=== PATIENT | female | born 1950 | race Caucasian/White ===

== ENCOUNTER 2019-05-02 14:00 | Inpatient (IN) | payer MEDICARE ==
[2019-05-10] MEDS ORDERED: Vancomycin 1.5 GRAM/300 ML BAG 1.5 GM/300 ML BAG ONE (08:16)
[2019-05-10] MEDS ORDERED: Tranexamic Acid 1,000 MG/10 ML VIAL ONE ×2 (08:16→12:26)
[2019-05-10] MEDS ORDERED: Sodium Chloride 0.9% 100 ML ONE (08:16)
[2019-05-10] MEDS ORDERED: Midazolam HCl 2 mg/2 ml Vial ONE (08:42)
[2019-05-10] MEDS ORDERED: Fentanyl 100 MCG/2 ML VIAL ONE ×2 (08:42→09:30)
[2019-05-10] MEDS ORDERED: Ondansetron PF 4 MG/2 ML Vial IVP PRN (09:18)
[2019-05-10] MEDS ORDERED: Zolpidem Tartrate 5 MG TAB PO PRN (09:18)
[2019-05-10] MEDS ORDERED: Ropivacaine 0.2% 550 ML 550 ML NERVE BLCK SCH (09:18)
[2019-05-10] MEDS ORDERED: Promethazine HCl 25 MG/ML VIAL IM PRN ×2 (09:18→12:10)
[2019-05-10] MEDS ORDERED: HYDROcodone/Acetaminophen 10/325 mg Tablet PO PRN (09:18)
[2019-05-10] MEDS ORDERED: Fentanyl 100 MCG/2 ML VIAL IV PRN (09:19)
[2019-05-10] MEDS ORDERED: Scopolamine 1.5 mg/72 hour Patch ONE (09:20)
[2019-05-10] MEDS ORDERED: PHENYLEPHRINE-NS 100 MCG/ML 10 ML SYRINGE ONE (09:42)
[2019-05-10] MEDS ORDERED: EPHEDRINE 25 MG/5 ML SYRINGE ONE (09:42)
[2019-05-10] MEDS ORDERED: PROPOFOL 200 MG/20 ML VIAL ONE (09:42)
[2019-05-10] MEDS ORDERED: Ondansetron PF 4 MG/2 ML Vial ONE (09:42)
[2019-05-10] MEDS ORDERED: Lidocaine 1% PF 5 ML VIAL ONE (09:42)
[2019-05-10] MEDS ORDERED: Ketorolac Tromethamine 30 MG/ML VIAL ONE (09:42)
[2019-05-10] MEDS ORDERED: Glycopyrrolate 0.2 MG/ML 5 ML SYRINGE ONE (09:42)
[2019-05-10] MEDS ORDERED: Rocuronium Bromide 10 MG/ML (10ML VIAL) ONE (09:42)
[2019-05-10] MEDS ORDERED: Ropivacaine 0.5% HCl/PF (150 MG/30 ML VIAL) ONE (09:42)
[2019-05-10] MEDS ORDERED: Dexamethasone 20 MG/5 ML VIAL ONE (09:42)
[2019-05-10] MEDS ORDERED: Ropivacaine 0.2% HCl/PF (40 MG/20 ML VIAL) ONE (09:42)
[2019-05-10] MEDS ORDERED: Bisacodyl 10 MG SUPP PR PRN (11:57)
[2019-05-10] MEDS ORDERED: Ondansetron HCl/PF 4 MG/2 ML Vial IVP PRN (12:10)
[2019-05-10] MEDS ORDERED: HYDROmorphone 2 MG/ML VIAL SLOW IVP PRN (12:10)
[2019-05-10] MEDS ORDERED: Promethazine HCl 25 MG/ML VIAL SLOW IVP PRN (12:10)
[2019-05-10] MEDS ORDERED: PACU-Morphine 4MG/ML VIAL SLOW IVP PRN (12:10)
[2019-05-10] MEDS: Lactated Ringer's 1,000 ML IV SCH ×2 (13:10→16:27)
[2019-05-10 14:13] VITALS: BMI 38.0
[2019-05-10] MEDS: CEFAZOLIN 2 GM in Premix Bag 1 BAG IVPB SCH ×2 (16:28→23:06)
[2019-05-10] MEDS: Potassium Chloride 20 MEQ TAB PO SCH (16:29)
[2019-05-10] MEDS: Mometasone 200 MCG/Formoterol 5 MCG 120 PUFF INHALER INH SCH (19:37)
[2019-05-10] MEDS: Montelukast Sodium 10 mg Tablet PO SCH (20:47)
[2019-05-10] MEDS: DULoxetine 60 MG CAP PO SCH (20:47)
[2019-05-10] MEDS ORDERED: Vancomycin 1.5 GRAM/300 ML BAG 1.5 GM in Premix Bag 1 BAG IVPB SCH (21:00)
[2019-05-10] MEDS: Verapamil PM 100 MG CAP PO SCH (21:17)
[2019-05-10] MEDS: traMADol HCl 50 MG TAB PO PRN (23:57)
[2019-05-11] MEDS: HYDROcodone/Acetaminophen 10/325 mg Tablet PO PRN ×2 (02:45→08:19)
[2019-05-11] MEDS: tiZANidine HCl 4 MG TAB PO PRN ×2 (05:48→21:05)
[2019-05-11] MEDS: Mometasone 200 MCG/Formoterol 5 MCG 120 PUFF INHALER INH SCH ×2 (08:08→18:52)
[2019-05-11] MEDS: Potassium Chloride 20 MEQ TAB PO SCH ×2 (08:14→17:13)
[2019-05-11] MEDS: Furosemide 40 MG TAB PO SCH (08:14)
[2019-05-11] MEDS: Loratadine 10 MG TAB PO SCH (08:14)
[2019-05-11] MEDS: Losartan 25 MG TAB PO SCH (08:15)
[2019-05-11] MEDS: Stress 600 With Zinc 1 TAB PO SCH (08:15)
--- NOTE | 2019-05-11 11:34 | OP ---
DATE OF PROCEDURE: 05/10/2019 PREOPERATIVE DIAGNOSIS: Degenerative joint disease, left shoulder. POSTOPERATIVE DIAGNOSIS: Degenerative joint disease, left shoulder. PROCEDURE PERFORMED: Left total shoulder arthroplasty with biceps tenodesis. IMPLANTS: Tornier PERFORM Cortiloc S40 glenoid, 4C Flex stem, and a 43 mm head, low offset. OPTICAL GOODS WORKER: Abhijit Grey PA-C BLOOD LOSS: 200. SPECIMENS: None. DRAINS: None. COMPLICATIONS: None. NARRATIVE REPORT: After standard deltopectoral approach, I examined the biceps tendon sheath which was inflamed and had a very thick bursal layer over the top with underlying ganglion. Biceps was opened. The biceps tendon sheath was opened. Biceps was in poor condition. It was taken off the superior glenoid tubercle and tacked and then tenodesed using #5 Ethibond suture to bone below the joint. The subscapularis was taken off using an osteotome to make a small lesser trochanteric osteotomy, tagged with four #5 Ethibond sutures. Head was dislocated. Osteophytes were trimmed. I released the anterior capsule, got the subscapularis to an elastic consistency. I then cut the humeral head at a 135-degree angle and trimmed the osteophytes. The head was then broached and sized appropriately. A trial prosthesis was left in the shaft and I approached the glenoid. Bone spurs were removed from around the glenoid. True center of the glenoid was identified. I made a single drill hole and reamed with an appropriate size reamer, trimmed osteophytes, punched the keel and did a trial reduction with the glenoid which appeared to be an appropriate fit. Trials were removed and irrigation was performed. The glenoid was punched into place and cement was allowed to cure. Extraneous cement was removed. Attention was turned back to the humerus where trial heads were used and the appropriate size was confirmed with the appropriate elasticity of the tissues. Trial was removed. Irrigation was performed. Four #5 Ethibond sutures were placed through the lesser tuberosity. The permanent implant was impacted into place. The subscapularis was repaired in a double-row fashion. The rotator interval was repaired with #1 Ethibond. Irrigation performed again. Deltopectoral interval was tacked closed with 0 Vicryl, subcutaneous closed with 2-0 Vicryl. The skin was closed with abiel. Sterile dressings applied. The patient was placed in a sling. There were no complications. Job ID: [id number]
[2019-05-11] MEDS: Lactated Ringer's 1,000 ML IV SCH (17:06)
[2019-05-11] MEDS: Montelukast Sodium 10 mg Tablet PO SCH (21:05)
[2019-05-11] MEDS: Verapamil PM 100 MG CAP PO SCH (21:05)
[2019-05-11] MEDS: DULoxetine 60 MG CAP PO SCH (21:05)
[2019-05-11] MEDS: traMADol HCl 50 MG TAB PO PRN (23:14)
[2019-05-12] MEDS: traMADol HCl 50 MG TAB PO PRN (07:06)
[2019-05-12] MEDS: Mometasone 200 MCG/Formoterol 5 MCG 120 PUFF INHALER INH SCH ×2 (08:34→19:18)
[2019-05-12] MEDS: Losartan 25 MG TAB PO SCH (10:53)
[2019-05-12] MEDS: Potassium Chloride 20 MEQ TAB PO SCH ×2 (10:54→17:34)
[2019-05-12] MEDS: Loratadine 10 MG TAB PO SCH (10:54)
[2019-05-12] MEDS: Furosemide 40 MG TAB PO SCH (10:54)
[2019-05-12] MEDS: Lactated Ringer's 1,000 ML IV SCH (10:55)
[2019-05-12] MEDS: Stress 600 With Zinc 1 TAB PO SCH (11:07)
--- NOTE | 2019-05-12 14:27 | PRG ---
DATE OF SERVICE: 05/12/2019 SUBJECTIVE: Shannon is a 68-year-old female, postoperative day 2 from a right total shoulder arthroplasty. Yesterday, we held discharge due to the fact that she was comfortable, but had new onset of confusion. We thought this was medication induced, therefore changed her medication and discontinued the Howe. However, overnight, she has been hallucinating. She has been a pleasant, but confused some and she drifts in and out of lucidity. She will carry on a discussion with her daughter who has been at the bedside and quite helpful, but last night the patient wandered down in the tripp into a different room. The patient has no history of dementia. OBJECTIVE: VITAL SIGNS: Temperature 98.8, pulse 84, respiratory rate 18, O2 saturation 92% on room air, and blood pressure 165/72. NEUROLOGIC: She is alert, responsive, and appropriate with examiner. Remote memory is adequate. Short-term memory is deficient. She is grossly nonfocal. No nystagmus. She can stand and follow commands. She has no asymmetry of facial muscles. No weakness in the upper extremities. She is able to mobilize very well. EXTREMITIES: Her incision is clean. There is no strike through. She is neurovascularly intact in the right upper extremity. IMPRESSION: A 68-year-old female, postoperative day 2 with new onset confusion and persistent confusion now for 24 hours. At this point, I do not feel it is drug related, especially with pain medicines. PLAN: We will consult Medicine Service and have them take a look to see if we can figure out why this patient is confused. Job ID: [id number]
[2019-05-12 17:18] LABS: Actual Bicarbonate (HCO3a) 23.6 mEq/L (22-28); Base Excess (BEa) -0.4 mEq/L (-2.0 to +3.0); CO2 Tension 36.4 mmHg (35.0-45.0); Carboxyhemoglobin (COHb) 0.9 gm% (0.0-3.0); Hemoglobin (Hb) 12.2 g/dL (12.0-16.0); O2 Tension (PaO2) 62.7 mmHg (> 70.0); Potassium - ABG Lab 3.65 mmol/L (3.70-5.30); pH, Arterial 7.43 (7.35-7.45)
[2019-05-12 17:19] LABS: Puncture Site RB
[2019-05-12 17:39] LABS: #Basophils 0.1 thou/uL (0.0-0.2); #Eosinphils 0.4 thou/uL (0.0-0.7); #Lymphocytes 2.5 thou/uL (1.20-3.40); #Monocytes 1.6 thou/uL (0.11-0.59); #Neutrophils 8.6 thou/uL (1.40-6.50); %Basophils 0.7 % (0.0-1.0); %Eosinophils 2.8 % (0.0-10.0); %Lymphocytes 18.8 % (21.0-51.0); %Monocytes 12.2 % (0.0-10.0); %Neutrophils 65.5 % (42.0-75.0); Hemoglobin 12.3 g/dL (12.0-16.0); Mean Corpuscular Hemoglobin 32.4 pg (27.0-31.0); Mean Corpuscular Volume 95.3 fL (78.0-98.0); Mean Platelet Volume 8.5 fL (7.4-10.4); Platelet Count 261 thou/uL (130-400); RBC Distribution Width 12.2 % (11.5-14.5); Red Blood Cell (RBC) Count 3.81 mill/uL (4.20-5.40); White Blood Cell (WBC) Count 13.1 thou/uL (4.8-10.8)
[2019-05-12 17:53] LABS: ALT (SGPT) 10 U/L (8-55); AST (SGOT) 19 U/L (5-34); Albumin 3.7 g/dL (3.4-4.8); Alkaline Phosphatase 70 U/L (40-110); Anion Gap 13 mmol/L (10-20); BUN (Urea Nitrogen) 12 mg/dL (9.8-20.1); Bilirubin, Total 0.5 mg/dL (0.2-1.2); Calc. Creatinine Clearance 117 mL/min (70-130); Calcium 9.2 mg/dL (7.8-10.44); Carbon Dioxide 24 mmol/L (23-31); Chloride 104 mmol/L (98-107); Estimated GFR-MDRD 71; Globulin 3.2 g/dL (2.4-3.5); Glucose 99 mg/dL (80-115); Protein, Total 6.9 g/dL (6.0-8.3); Sodium 137 mmol/L (136-145)
--- NOTE | 2019-05-12 18:56 | CON ---
DATE OF CONSULTATION: 05/12/2019 PRIMARY CARE PHYSICIAN: The patient's primary care physician is out of town. REASON FOR CONSULTATION: Altered mental status. HISTORY OF PRESENT ILLNESS: Ms. Weiss is a very pleasant 68-year-old female who has a history of hypertension and what sounds like chronic bronchitis. She was admitted for an elective left shoulder surgery due to chronic pain. She had the procedure done on the , and her daughter who is at the bedside says that ever since she returned from surgery she has been confused. She says that she will wake up, she can recognize the daughter and knows where she is, but talks nonsensical. She says that her words are clear, but they are random. She says that she also has been sleeping a whole lot, and generally while she sleeps, she is confused and will just kind of mumble things. She does admit that the patient had a habit of snoring at home as well and occasionally looked labored with her breathing at home. Currently, when I see her, she does appear to have some labored breathing and she is making some jerking with her legs. She denies having any other symptoms, such as pain. She says she has been occasionally nauseated, but no vomiting and otherwise no other complaints. The patient's daughter says that her mom was alert and completely functional. No signs of any memory loss. Prior to this, she was able to you know dress herself, pay bills online, etc., prior to this happening. REVIEW OF SYSTEMS: All systems were reviewed and are negative except for that mentioned in the history of present illness. PAST MEDICAL HISTORY: Significant for: 1. Hypertension. 2. Bronchitis. 3. COPD. 4. Chronic anemia. 5. Obesity. The patient's BMI is 38, she is 5 feet 8 inches, and 250 pounds. PAST SURGICAL HISTORY: 1. She has had right knee arthroscopy. 2. Lens implant. 3. Cataract surgery. 4. . ALLERGIES: TO LATEX AND ADHESIVE TAPE. FAMILY HISTORY: Significant for Alzheimer disease. SOCIAL HISTORY: She is a nonsmoker and nondrinker. CURRENT MEDICATIONS: Include: 1. Super B complex one capsule daily. 2. Verapamil extended release 300 mg nightly. 3. Tizanidine 4 mg t.i.d. 4. Potassium chloride 20 mEq two tablets twice a day. 5. Losartan 50 mg daily. 6. Singulair 10 mg nightly. 7. Zyrtec 5 mg nightly. 8. Furosemide 40 mg daily. 9. Drisdol 1.25 mg every 7 days. 10. Duloxetine 60 mg nightly. 11. Curcumin 25 mg daily. PHYSICAL EXAMINATION: GENERAL: She is initially drowsy, but then she can be awakened, and when she is, she is alert and oriented to person, place, and time. She knows why she is in the hospital. She can recognize her daughter. VITAL SIGNS: Blood pressure was 127/86, heart rate 94, respiratory rate of 16, and temperature is 98.2. HEENT: Pupils are equal, round, and reactive. Extraocular muscles are intact. Her sclerae anicteric. Throat, there is no erythema and no exudates. NECK: No adenopathy. No bruits. LUNGS: Clear to auscultation. She did have some coarse breath sounds at the bases. Very poor inspiratory effort. CARDIOVASCULAR: She has a normal S1 and S2. No S3 or S4. No murmurs, clicks, or rubs. ABDOMEN: Obese. It is soft, nontender, and nondistended. Positive for bowel sounds. No rebound. No guarding. No organomegaly. EXTREMITIES: There is 1+ edema. NEUROLOGIC: The exam is grossly nonfocal. SKIN AND INTEGUMENT: No skin changes. No rash. LABORATORY RESULTS: She had lab work done on 05/03, which was reviewed and was essentially negative. ASSESSMENT: 1. This is a pleasant 68-year-old female who has had drowsiness and altered mental status since her surgery. It is noted that the patient is obese, and currently when I see her, she appears to have some labored breathing, although she denies feeling short of breath. She clinically gives the appearance of sleep apnea, although this has been undiagnosed and there is currently no current lab work to review. I suspect this is the likely reason for her drowsiness, lethargy, and altered mental status, which waxes and wanes. We will check some routine blood work as well as a stat ABG. I suspect a trial of CPAP or AutoPAP over the course of the next day or 2 would likely help her resolve the situation. This along with avoiding sedating medications. This was explained to the patient's daughter as well as the patient at the bedside. 2. Hypertension. This appears to be well controlled. We will continue her home medications including verapamil and losartan. 3. Chronic obstructive pulmonary disease. We will continue a long-acting beta agonist and neb treatments as needed. We will be happy to follow along with you. Job ID: [id number]
[2019-05-12] MEDS: DULoxetine 60 MG CAP PO SCH (20:34)
[2019-05-12] MEDS: Montelukast Sodium 10 mg Tablet PO SCH (20:34)
[2019-05-12] MEDS: Verapamil PM 100 MG CAP PO SCH (20:34)
[2019-05-13] MEDS: Lactated Ringer's 1,000 ML IV SCH ×2 (05:39→17:18)
[2019-05-13] MEDS: Mometasone 200 MCG/Formoterol 5 MCG 120 PUFF INHALER INH SCH ×2 (06:44→19:15)
[2019-05-13] MEDS: Potassium Chloride 20 MEQ TAB PO SCH ×2 (08:42→16:48)
[2019-05-13] MEDS: Losartan 25 MG TAB PO SCH (08:42)
[2019-05-13] MEDS: Furosemide 40 MG TAB PO SCH (08:42)
[2019-05-13] MEDS: Stress 600 With Zinc 1 TAB PO SCH (08:43)
[2019-05-13] MEDS: Loratadine 10 MG TAB PO SCH (08:43)
[2019-05-13] MEDS: traMADol HCl 50 MG TAB PO PRN ×2 (12:21→18:39)
--- NOTE | 2019-05-13 14:49 | PDOC.HOSPP ---
- Subjective Encounter Date: 05/13/19 Encounter Time: 14:47 Subjective: Ms. Weiss was seen today in follow-up of altered mental status. She is much more clear today. She does not have any complaints. - Objective Vital Signs & Weight: Vital Signs (12 hours) Temp Pulse Resp BP Pulse Ox 05/13/19 11:24 98.6 F 89 16 157/72 H 96 05/13/19 08:00 95 05/13/19 07:26 98.4 F 75 16 147/51 H 95 Weight Weight 250 lb I&O: 05/12/19 05/13/19 05/14/19 06:59 06:59 06:59 Intake Total 2220 1200 Output Total 0 Balance 2220 1200 Result Diagrams: 05/12/19 17:20 05/12/19 17:20 Hospitalist ROS - Medication Medications: Active Medications Generic Name Dose Route Start Last Admin Trade Name Freq PRN Reason Stop Dose Admin Hydrocodone Bitart/Acetaminophen 1 tab 05/10/19 09:18 05/11/19 08:19 [place] 10/325 PO 1 tab Q4H PRN Administration Pain (1-3) Duloxetine HCl 60 mg 05/10/19 21:00 05/12/19 20:34 Cymbalta PO 60 mg HS RIAN Administration Furosemide 40 mg 05/11/19 09:00 05/13/19 08:42 Lasix PO 40 mg DAILY RIAN Administration Lactated Ringer's 1,000 mls @ 65 mls/hr 05/10/19 12:00 05/13/19 05:39 Lactated Ringer's IV Not Given .[id number] RIAN Loratadine 10 mg 05/11/19 09:00 05/13/19 08:43 Claritin PO 10 mg DAILY RIAN Administration Losartan Potassium 50 mg 05/11/19 09:00 05/13/19 08:42 Cozaar PO 50 mg DAILY RIAN Administration Mometasone Furoate/Formoterol Fumar 2 puff 05/10/19 18:30 05/13/19 06:44 Dulera 200 Mcg/5 Mcg Inhaler INH 2 puff BID-RT RIAN Administration Montelukast Sodium 10 mg 05/10/19 21:00 05/12/19 20:34 Singulair PO 10 mg HS RIAN Administration Multivitamins/Zinc 1 tab 05/11/19 09:00 05/13/19 08:43 Stress 600 With Zinc PO 1 tab DAILY RIAN Administration Potassium Chloride 40 meq 05/10/19 17:00 05/13/19 08:42 K-Dur PO 40 meq BID-WM RIAN Administration Tizanidine HCl 1 mg 05/10/19 12:00 05/11/19 21:05 Zanaflex PO 1 mg TIDPRN PRN Administration muscle spasms Tramadol HCl 50 mg 05/10/19 09:18 05/11/19 23:14 Ultram PO 50 mg Q6H PRN Administration Mild Pain (1-3) Tramadol HCl 100 mg 05/10/19 09:18 05/13/19 12:21 Ultram PO 100 mg Q6H PRN Administration Moderate Pain 4-6 Verapamil HCl 300 mg 05/10/19 21:00 05/12/19 20:34 Verelan Pm PO 300 mg HS RIAN Administration - Exam Eye: PERRL Heart: RRR, no murmur, no gallops, no rubs, normal peripheral pulses Respiratory: CTAB (With occasional wheeze), no rales, no ronchi Gastrointestinal: soft, non-tender, non-distended, normal bowel sounds, no palpable masses, no hepatomegaly, no splenomegaly Extremities: 1+ LE edema Hosp A/P (1) Metabolic encephalopathy Code(s): G93.41 - METABOLIC ENCEPHALOPATHY Status: Acute (2) JHOANA (obstructive sleep apnea) Code(s): G47.33 - OBSTRUCTIVE SLEEP APNEA (ADULT) (PEDIATRIC) Status: Acute (3) Hypertension Code(s): I10 - ESSENTIAL (PRIMARY) HYPERTENSION Status: Chronic (4) Chronic bronchitis Code(s): J42 - UNSPECIFIED CHRONIC BRONCHITIS Status: Chronic - Plan * Metabolic encephalopathy- likely due to obesity hypoventilation. Much improved * Probable JHOANA/ Obesity hypoventilation- discussed with the patient- she plans to have an out patient sleep study * HTN- blood pressure stable * Post Left shoulder arthroplasty- stable * Disposition as per Orthopedic Surgery
[2019-05-13] MEDS: Acetaminophen 325 MG TAB PO PRN (15:42)
[2019-05-13] MEDS: DULoxetine 60 MG CAP PO SCH (20:12)
[2019-05-13] MEDS: Montelukast Sodium 10 mg Tablet PO SCH (20:12)
[2019-05-13] MEDS: Verapamil PM 100 MG CAP PO SCH (23:00)
[2019-05-14] MEDS: Mometasone 200 MCG/Formoterol 5 MCG 120 PUFF INHALER INH SCH (06:51)
[2019-05-14 08:03] VITALS: BP 176/68; TEMP 98.4
[2019-05-14] MEDS: Potassium Chloride 20 MEQ TAB PO SCH (08:34)
[2019-05-14] MEDS: Loratadine 10 MG TAB PO SCH (08:35)
[2019-05-14] MEDS: Losartan 25 MG TAB PO SCH (08:35)
[2019-05-14] MEDS: Furosemide 40 MG TAB PO SCH (08:35)
[2019-05-14] MEDS: Stress 600 With Zinc 1 TAB PO SCH (09:17)
[2019-05-14] MEDS: Lactated Ringer's 1,000 ML IV SCH (09:17)
[2019-05-14] MEDS: traMADol HCl 50 MG TAB PO PRN (10:26)
[2019-05-14] MEDS: Acetaminophen 325 MG TAB PO PRN (10:26)
[2019-05-14] MEDS ORDERED: Ondansetron ODT 4 MG TAB PO SCH (10:45)
--- NOTE | 2019-05-14 14:12 | PDOC.EVN ---
Event Note - Event Note Event Note: discharged prior to being seen
[2019-05-14] MEDS ORDERED: Ergocalciferol 1.25 MG(50,000 UNITS) CAP PO SCH (21:00)
== END 2019-05-14 11:20 | disposition home or self-care (01) | DRG 483 ==
LOC: SURG A 05-10 06:40
PROVIDERS: ADMIT Orthopaedic Surgery; ATTEND Orthopaedic Surgery
PROC: 0RRK0JZ Replacement of Left Shoulder Joint with Synthetic Substitute, Open Approach (ICD-10-PCS; principal; 2019-05-10)
PROC: 0LS40ZZ Reposition Left Upper Arm Tendon, Open Approach (ICD-10-PCS; 2019-05-10)
DX: M19.012 Primary osteoarthritis, left shoulder (principal); G93.41 Metabolic encephalopathy; E66.2 Morbid (severe) obesity with alveolar hypoventilation; I10 Essential (primary) hypertension; D64.9 Anemia, unspecified; Z96.1 Presence of intraocular lens; J30.2 Other seasonal allergic rhinitis; J44.9 Chronic obstructive pulmonary disease, unspecified; Z98.42 Cataract extraction status, left eye; Z98.41 Cataract extraction status, right eye; Z68.38 Body mass index [BMI] 38.0-38.9, adult
CPT/HCPCS: 36415; 80053; 82140; 82805; 85025; 94660; A4306; C1713; J0690; J1100; J1885; J2001; J2250; J2405; J2704; J2795; J3010; J3490; Q0162

== ENCOUNTER 2019-05-04 07:06 | Outpatient (CLI) | payer MEDICARE ==
[2019-05-04 15:53] LABS: Bacteria/HPF None Seen HPF (None Seen); Bilirubin Negative (Negative); Blood, Urine Negative (Negative); Clarity Clear (Clear); Glucose, Urine (Dipstick) Normal (Negative); Leukocyte 25 Leu/uL (Negative); Nitrite Negative (Negative); Protein, Urine (Dipstick) Negative (Neg-Trace); RBC/HPF 0-3 HPF (0-3); Squamous Epithelial 0-3 HPF (0-3); Urobilinogen Normal mg/dL (Less than 2); WBC/HPF 0-3 HPF (0-3)
[2019-05-04 15:54] LABS: #Basophils 0.1 thou/uL (0.0-0.2); #Eosinphils 0.4 thou/uL (0.0-0.7); #Lymphocytes 2.1 thou/uL (1.20-3.40); #Monocytes 0.7 thou/uL (0.11-0.59); #Neutrophils 4.9 thou/uL (1.40-6.50); %Basophils 1.3 % (0.0-1.0); %Eosinophils 4.4 % (0.0-10.0); %Lymphocytes 25.5 % (21.0-51.0); %Monocytes 8.9 % (0.0-10.0); Hemoglobin 13.2 g/dL (12.0-16.0); Mean Corpuscular HGB CONC 33.1 g/dL (32.0-36.0); Mean Corpuscular Hemoglobin 31.2 pg (27.0-31.0); Mean Corpuscular Volume 94.3 fL (78.0-98.0); Mean Platelet Volume 8.7 fL (7.4-10.4); Platelet Count 285 thou/uL (130-400); Red Blood Cell (RBC) Count 4.24 mill/uL (4.20-5.40); White Blood Cell (WBC) Count 8.2 thou/uL (4.8-10.8)
[2019-05-04 16:17] LABS: Anion Gap 11 mmol/L (10-20); BUN (Urea Nitrogen) 14 mg/dL (9.8-20.1); Calc. Creatinine Clearance 0 mL/min (70-130); Calcium 9.6 mg/dL (7.8-10.44); Carbon Dioxide 27 mmol/L (23-31); Chloride 108 mmol/L (98-107); Estimated GFR-MDRD 54; Glucose 92 mg/dL (80-115); Potassium 4.4 mmol/L (3.5-5.1); Sodium 142 mmol/L (136-145)
== END 2019-05-04 07:07 | disposition home or self-care (01) ==
LOC: LABBT 07:06
PROVIDERS: ATTEND Orthopaedic Surgery
DX: Z01.812 Encounter for preprocedural laboratory examination (principal); M19.012 Primary osteoarthritis, left shoulder
CPT/HCPCS: 80048; 81001; 85025; 87081; 93005; 93010